=== PATIENT | male | born 1940 | race Caucasian/White ===

== ENCOUNTER → 2016-07-06 | Outpatient (CLI) | payer MEDICARE, OTHER ==
[~2016-07-06] MED LIST: AMARYL 2MG TABLE2 MG PO; ASPIRIN325 MG PO; COLACE 100MG C100 MG PO; DILTIAZEM 24HR240 MG PO; DOCUSATE SODIU1 EACH PO; EPLERENONE25 MG PO; EPLERENONE50 MG PO; FINASTERIDE1 MG PO; FINASTERIDE5 MG PO; FLOMAX 0.4 MG0.4 MG PO; FOLIC ACID1 MG PO; MS CONTIN TAB S15 MG PO; PRAVASTATIN SOD80 MG PO; PROTONIX40 MG PO; ROXICODONE TAB 55 MG PO; VITAMIN D1000 UNIT PO; VITAMIN D350000 UNIT PO
[2016-07-06 11:30] LABS: RED BLOOD COUNT 4.29 M/UL (4.20-5.50); WHITE BLOOD COUNT 9.5 K/UL (4.5-11.0)
== END ==
LOC: CT 10:45
PROVIDERS: Internal Medicine Hematology & Oncology
DX: C34.11 Malignant neoplasm of upper lobe, right bronchus or lung (principal); I31.3 Pericardial effusion (noninflammatory); J98.59 Other diseases of mediastinum, not elsewhere classified; R31.9 Hematuria, unspecified
CPT/HCPCS: 36415; 71260; 80053; 85025; J7050

== ENCOUNTER → 2016-07-07 | Outpatient (CLI) | payer MEDICARE, OTHER | LOC: HEART 5 07-05 15:30 | DX: I10 Essential (primary) hypertension (principal); I31.3 Pericardial effusion (noninflammatory); I31.4 Cardiac tamponade; I35.0 Nonrheumatic aortic (valve) stenosis; I35.1 Nonrheumatic aortic (valve) insufficiency | CPT/HCPCS: 93306 ==

== ENCOUNTER → 2016-07-20 | Outpatient (CLI) | payer MEDICARE, OTHER | LOC: CT 10:24 | DX: C34.11 Malignant neoplasm of upper lobe, right bronchus or lung (principal); I31.3 Pericardial effusion (noninflammatory); J98.59 Other diseases of mediastinum, not elsewhere classified; R31.9 Hematuria, unspecified; C78.7 Secondary malignant neoplasm of liver and intrahepatic bile duct ==

== ENCOUNTER 2016-09-19 23:01 | Inpatient (IN) | payer MEDICARE, OTHER ==
[~2016-09-19 23:01] MED LIST changes: -COLACE 100MG C100 MG PO; -DOCUSATE SODIU1 EACH PO; -EPLERENONE25 MG PO; -FINASTERIDE5 MG PO; -MS CONTIN TAB S15 MG PO; -ROXICODONE TAB 55 MG PO; -VITAMIN D350000 UNIT PO
[2016-09-20 01:09] LABS: HEMOGLOBIN 10.2 gm/dl (14.0-17.5); RED BLOOD COUNT 3.79 M/UL (4.20-5.50)
[2016-09-20 01:36] LABS: BUN/CREATININE RATIO 24 (0-10)
[2016-09-20] MEDS ORDERED: FINASTERIDE5 MG PO (04:51)
[2016-09-20] MEDS ORDERED: AMARYL 2MG TABLE2 MG PO (04:51)
[2016-09-20] MEDS ORDERED: EPLERENONE25 MG PO (04:51)
[2016-09-20] MEDS ORDERED: VITAMIN D350000 UNIT PO (04:53)
[2016-09-20 05:39] LABS: BUN/CREATININE RATIO 21 (0-10)
[2016-09-21 04:48] LABS: HEMOGLOBIN 10.7 gm/dl (14.0-17.5); RED BLOOD COUNT 4.02 M/UL (4.20-5.50); WHITE BLOOD COUNT 13.1 K/UL (4.5-11.0)
[2016-09-21 05:10] LABS: BUN/CREATININE RATIO 20 (0-10)
[2016-09-22] MEDS ORDERED: COLACE 100MG C100 MG PO (15:02)
[2016-09-22] MEDS ORDERED: MS CONTIN TAB S15 MG PO (15:04)
[2016-09-22] MEDS ORDERED: ROXICODONE TAB 55 MG PO (15:05)
[2016-09-22] MEDS ORDERED: DOCUSATE SODIU1 EACH PO (15:26)
== END 2016-09-22 17:45 | DRG 71 ==
LOC: ER1 23:01 → ZEROF 09-20 03:48 → M/S 09-20 03:48
PROVIDERS: Internal Medicine Hematology & Oncology; Specialist/Technologist Athletic Trainer; ADMIT Internal Medicine
DX: G93.41 Metabolic encephalopathy (principal); C34.90 Malignant neoplasm of unspecified part of unspecified bronchus or lung; C78.7 Secondary malignant neoplasm of liver and intrahepatic bile duct; J90 Pleural effusion, not elsewhere classified; J44.9 Chronic obstructive pulmonary disease, unspecified; R30.0 Dysuria; E11.649 Type 2 diabetes mellitus with hypoglycemia without coma; D64.9 Anemia, unspecified; K21.9 Gastro-esophageal reflux disease without esophagitis; E78.5 Hyperlipidemia, unspecified; E83.42 Hypomagnesemia; G89.3 Neoplasm related pain (acute) (chronic); D72.829 Elevated white blood cell count, unspecified; R63.0 Anorexia; Z68.23 Body mass index [BMI] 23.0-23.9, adult; N40.0 Benign prostatic hyperplasia without lower urinary tract symptoms; F17.210 Nicotine dependence, cigarettes, uncomplicated; Z66 Do not resuscitate; Z87.442 Personal history of urinary calculi; Z79.84 Long term (current) use of oral hypoglycemic drugs; Z79.899 Other long term (current) drug therapy; Z98.890 Other specified postprocedural states; Z80.1 Family history of malignant neoplasm of trachea, bronchus and lung; Z82.49 Family history of ischemic heart disease and other diseases of the circulatory system
CPT/HCPCS: 36415; 36600; 51701; 70450; 71010; 71250; 72125; 80048; 80053; 80076; 81001; 82140; 82550; 82553; 82607; 82803; 82962; 83690; 83735; 83874; 83880; 84443; 84484; 85025; 85610; 85730; 87086; 93005; 94640; 94664; 96374; 97116; 97530; 99285; J0696; J1335; J2270; J7030; J7050; Q9962